=== PATIENT | male | born 1995 | race Caucasian/White ===

== ENCOUNTER 2018-11-13 23:19 | Emergency (ER) | payer OTHER ==
--- NOTE | 2018-11-13 23:53 | ER Document Report ---
ED General - General Chief Complaint: Hand Pain Stated Complaint: HAND PROBLEM Time Seen by Provider: 11/13/18 23:53 Primary Care Provider: CASTILLO HAN MD [ACTIVE STAFF] - Follow up as needed (orthopedics ) Notes: Patient is a 23-year-old male that presents to the emergency department for chief complaint of right hand pain after injury. Patient reports that he was crab fishing, when he was following up on of his pots the rope caught his hand and pulled it into a pole he, which injured his right thumb. This occurred this past Thursday, he was hoping the pain would go away but it did not. He has had some mild redness to the area, but it seems to be improving but his hand and thumb are still swollen from his injury. He currently rates his pain as a 4 out of 10 describes as a constant throbbing sensation in his thumb and hand. He is right-handed. He believes he is up-to-date with his tetanus vaccination. Denies any fevers, chills, redness streaking up his arm or pus drainage from any wounds. Past Medical History: Denies chronic medical conditions Past Surgical History: Denies surgical history Social History: Admits to smoking cigarettes, denies alcohol or drug use. Family History: Reviewed and noncontributory for presenting illness Allergies: Reviewed, see documented allergy list. REVIEW OF SYSTEMS: Other than noted above, the 12 point review of systems was reviewed with the patient and were negative, all pertinent findings are included in the HPI. PHYSICAL EXAMINATION: Vital signs reviewed, nursing noted reviewed. GENERAL: Well-appearing, well-nourished and in no acute distress. HEAD: Atraumatic, normocephalic. EYES: Eyes appear normal, sclera anicteric, conjunctiva are normal. ENT: Moist mucous membranes. NECK: Normal range of motion, supple without lymphadenopathy LUNGS: Breath sounds clear to auscultation bilaterally and equal. No wheezes rales or rhonchi. HEART: Regular rate and rhythm without murmurs EXTREMITIES: The right hand has some areas of erythema, and is tender to palpate along the palmar aspect, the thumb is tender, and the dorsal and palmar aspect, there is pain with range of motion of the IP joint of the right thumb as well as the MCP joint of the right thumb. There is no circumferential edema of any digit, nor is her pain with passive extension of the digits, patient is able to make a fist, but states it is uncomfortable. He has a healing wound in the first webspace, no pus drainage, there is no lymphangitis. The rest the patient's extremity exam demonstrates very superficial abrasions noted to the right forearm, otherwise unremarkable and good range of motion and nontender. NEUROLOGICAL: No focal neurological deficits. Moves all extremities spontaneously Motor and sensory grossly intact on exam. PSYCH: Normal mood, normal affect. SKIN: Warm, Dry, normal turgor, minor abrasions to the right forearm. TRAVEL OUTSIDE OF THE [place] IN LAST 30 DAYS: No - Related Data Allergies/Adverse Reactions: No Known Allergies Allergy (Unverified 11/13/18 23:22) Past Medical History - Social History Smoking Status: Current Every Day Smoker Family History: Reviewed & Not Pertinent Physical Exam - Vital signs Vitals: Temp Pulse Resp BP Pulse Ox 99.5 F 75 16 146/86 H 96 11/13/18 23:43 11/13/18 23:43 11/13/18 23:43 11/13/18 23:43 11/13/18 23:43 Course - Re-evaluation Re-evalutation: Patient seen and examined vital signs reviewed. Laboratory data and/or imaging were ordered as appropriate for the patient's pre senting symptoms and complaint, with consideration of any critical or life threatening conditions that may be associated with their obtained history and exam as noted above. Patient was treated with [place] and Toradol, and started on Augmentin Results were reviewed when available and demonstrated negative x-rays of the hand The patient was re-evaluated and was stable and improved, patient's hand was examined closely, did not have any carnival signs, but it did demonstrate possible infection to the hand, but I think this is mainly a crush injury to the soft tissues, causing the patient's pain, he is prescribed Augmentin, given [place] and anti-inflammatory and advised to follow-up with orthopedics. He was offered a thumb spica splint, but declined this. Evaluation was most consistent with hand injury Results were discussed with the patient at this point, after careful consideration I feel that that patient can be discharged from the emergency department, the patient was educated treatments and reasons to return to the emergency department based on their presumed diagnosis as noted above, they were advised to followup with a primary care physician in 2-3 days. Patient was agreeable to plan of care. *Note is created using voice recognition software and may contain spelling, syntax or grammatical errors. Hand X-Ray 11/14/18 00:08 IMPRESSION: Negative exam copyright 2011 [employer]- All Rights Reserved - Vital Signs Vital signs: Temp Pulse Resp BP Pulse Ox 97.9 F 58 L 16 110/66 99 11/14/18 01:11 11/14/18 01:11 11/13/18 23:43 11/14/18 01:11 11/14/18 01:11 Discharge - Discharge Clinical Impression: Hand injury Qualifiers: Encounter type: initial encounter Laterality: right Qualified Code(s): S69.91XA - Unspecified injury of right wrist, hand and finger(s), initial encounter Condition: Stable Disposition: HOME, SELF-CARE Instructions: Contusion ([facility]) Additional Instructions: Please monitor for worsening signs such as redness or streaking up your arm, pus drainage, or worsening pain in your hand. Please take medication as prescribed, complete the entire course of antibiotics. I would advise applying a topical antibiotic ointment, to the one open area near your thumb. Prescriptions: Amox Tr/Potassium Clavulanate [Augmentin 875-125 Tablet] 1 tab PO BID 7 Days #14 tablet RX: Naproxen 500 mg PO BID #30 tablet Referrals: CASTILLO HAN MD [ACTIVE STAFF] - Follow up as needed (orthopedics )
[2018-11-14] MEDS ORDERED: HYDROCODONE/ACETAMINOPHEN 5-325 MG TABLET PO ONE (00:08)
[2018-11-14] MEDS ORDERED: KETOROLAC TROMETHAMINE 60 MG/2 ML SDV IM ONE (00:08)
[2018-11-14] MEDS ORDERED: AMOXICILLIN TR/POT CLAVULANATE 500-125 MG TAB PO ONE (00:09)
--- NOTE | 2018-11-14 00:50 | RADIOLOGY REPORT (SQ) ---
EXAM DESCRIPTION: XR HAND 3 OR MORE VIEWS COMPLETED DATE/TME: 11/14/2018 00:08 CLINICAL HISTORY: 23 years, Male, right hand injury COMPARISON: None. NUMBER OF VIEWS: 3 TECHNIQUE: 3 view right hand LIMITATIONS: None. FINDINGS: Negative for fracture or dislocation. Soft tissues are unremarkable IMPRESSION: Negative exam copyright 2010 [employer]- All Rights Reserved
[2018-11-14] MEDS ORDERED: HYDROCODONE/ACETAMINOPHEN 5-325 MG (6 TAB/ER DISP) PO PRN (01:00)
[2018-11-14 01:14] VITALS: BP 110/66
== END 2018-11-14 01:30 | disposition home or self-care (01) ==
LOC: ER 23:19
DX: S69.91XA Unspecified injury of right wrist, hand and finger(s), initial encounter (principal); M79.641 Pain in right hand; X50.0XXA Overexertion from strenuous movement or load, initial encounter; Y93.89 Activity, other specified; F17.210 Nicotine dependence, cigarettes, uncomplicated
CPT/HCPCS: 99283; 73130; J1885